=== PATIENT | female | born 1990 | race Caucasian/White ===

== ENCOUNTER 2021-07-07 18:39 | Emergency (ER) | payer MEDICAID ==
[~2021-07-07] VITALS: Ht 170.2 cm; Wt 77.0 kg
[2021-07-07 19:26] LABS: CHLORIDE 106 mEq/L (98-107)
[2021-07-07 19:28] LABS: HCG SCREEN NEGATIVE
[2021-07-07 19:36] LABS: BASOPHILS % 0.1 % (0.0-2.0); EOSINOPHILS % 2.9 % (0.0-5.0); HEMATOCRIT. 36.3 % (36.0-48.0); LYMPHOCYTES % 33.8 % (20.0-50.0); MEAN CORPUSCULAR HEMOGLOBIN 26.2 pg (28.0-32.0); MEAN CORPUSCULAR VOLUME 79.4 fL (81.0-99.0); MEAN PLATELET VOLUME 6.7 fl (7.4-10.4); MONOCYTES % 7.8 % (2.0-8.0); NEUTROPHILS % 55.4 % (40.0-76.0); PLATELET 373 x1000/uL (130-400); RED BLOOD CELL COUNT 4.58 mill/uL (4.2-5.4); RED CELL DISTRIBUTION WIDTH 14.8 % (11.6-14.6)
[2021-07-07 22:36] VITALS: BP 104/73
== END 2021-07-07 22:40 | disposition home or self-care (01) ==
LOC: ER 18:39
DX: S12.9XXA Fracture of neck, unspecified, initial encounter (principal); V49.9XXA Car occupant (driver) (passenger) injured in unspecified traffic accident, initial encounter; Y93.89 Activity, other specified; Y92.89 Other specified places as the place of occurrence of the external cause; Y99.8 Other external cause status
CPT/HCPCS: 36415; 71045; 72040; 73560; 80053; 84484; 84703; 85025; 93005; 99285

== ENCOUNTER 2021-07-26 19:54 | Emergency (ER) | payer MEDICAID ==
[~2021-07-26] VITALS: Ht 160 cm; Wt 63.0 kg
[2021-07-27] MEDS ORDERED: HYDROCODONE/ACETAMINOPHEN 5/325MG TABLET PO ONE (02:15)
[2021-07-27] MEDS ORDERED: HYDR-4001 MT (03:13)
[2021-07-27 03:28] VITALS: BP 125/82
== END 2021-07-27 03:30 | disposition home or self-care (01) ==
LOC: ER 19:54
DX: M54.2 Cervicalgia (principal); R20.0 Anesthesia of skin; Z87.81 Personal history of (healed) traumatic fracture; Z98.1 Arthrodesis status
CPT/HCPCS: 81025; 99284

== ENCOUNTER 2022-06-15 19:35 | Emergency (ER) | payer SELFPAY ==
[~2022-06-15] VITALS: Ht 157.5 cm; Wt 66.0 kg
[~2022-06-15 19:35] MED LIST: HYDR-4001 MT
[2022-06-15] MEDS ORDERED: HYDROCODONE/ACETAMINOPHEN 5/325MG TABLET PO ONE (20:45)
[2022-06-15] MEDS ORDERED: KETOROLAC 60MG/2ML VIAL IM ONE (21:45)
[2022-06-15] MEDS ORDERED: LORAZEPAM 0.5MG TABLET PO ONE (21:45)
[2022-06-15] MEDS ORDERED: IBUP-2029 MT (22:01)
[2022-06-15] MEDS ORDERED: CYCL10TA21 MT (22:01)
[2022-06-15 22:11] VITALS: BP 127/66
== END 2022-06-15 22:13 | disposition home or self-care (01) ==
LOC: ER 19:35
DX: R07.89 Other chest pain (principal); S13.4XXA Sprain of ligaments of cervical spine, initial encounter; Z68.26 Body mass index [BMI] 26.0-26.9, adult; V89.1XXA Person injured in unspecified nonmotor-vehicle accident, nontraffic, initial encounter; Y93.89 Activity, other specified; Y92.89 Other specified places as the place of occurrence of the external cause; Y99.8 Other external cause status
CPT/HCPCS: 71101; 96372; 99283